=== PATIENT | female | born 1970 | race Caucasian/White ===

== ENCOUNTER 2020-04-19 15:35 | Emergency (ER) | payer OTHER, SELFPAY ==
--- NOTE | ~2020-04-19 | XR_ITS ---
EXAMINATION: XR finger 3rd RT min 2V EXAM DATE: 04/19/2020 15:56 INDICATION: caught in beater on thanksgiving. Pain right 3rd finger. TECHNIQUE: Right 3rd finger frontal, lateral and oblique projections obtained and reviewed. There is no prior study for comparison. FINDINGS: There are no acute right 3rd finger fractures or dislocations identified. There is no subc utaneous gas. Possible laceration overlying the proximal interphalangeal joint. The joint itself is normal in appearance, no erosion or evidence of osteomyelitis. There are no radiopaque foreign teresita s. IMPRESSION: 1. Unremarkable right 3rd finger exam. Reviewed, dictated and finalized at location A. [employer] MARKET[employer] DIRECT[employer]
[2020-04-19 15:44] VITALS: BP 153/117; PULSE 94; RESP 20; TEMP 36.3; O2SAT 100
--- NOTE | 2020-04-19 16:04 | ED.GENADULT ---
HPI - General Adult General Chief complaint: Extremity Injury, Upper Stated complaint: INJURED FINGER Time Seen by Provider: 04/19/20 16:02 Source: patient and RN notes reviewed Mode of arrival: ambulatory Limitations: no limitations History of Present Illness HPI narrative: 49-year-old female presents with complaints of RT middle (third) finger with pain for the past 24 days. Kelly reports getting finger stuck in a mixer on (03/27/20) day and the finger continues to cause pain with movement and holding items (coffee cup). Finger splint, ice, Tylenol, and Ibuprofen (last took Tylenol or ibuprofen over 2 weeks ago) with little to no relief. Denies numbness or tingling. No weakness of finger. Denies fever or chills. Denies immobility. Exacerbation is movement and palpation of finger. Some relieving factor is rest. Dominant hand is RIGHT HAND. Denies break in skin or drainage. LMP 04/05/2020. Remains active. The patient reports she have not been diagnosed with COVID-19. The patient reports she is not waiting for the results of a COVID-19 lab test. The patient reports she do not have chills, weakness, or fatigue. The patient reports she do not have a new or worsening cough or shortness of breath. Denies chest pain. The patient reports she do not have any rhinorrhea, congestion, sore throat, loss of taste, nausea, vomiting, abdominal pain, and diarrhea. Tolerating po intake well. Denies recent traveling. Denies concerns for COVID-19 or exposures been home with limited outdoor exposure except for essential household needs, work, and return home. At this time, patient is not suspected of having COVID-19. Some parts of this dictation were generated by voice recognition software and may contain typographical and/or grammatical inaccuracies. Related Data Home Medications Medication Instructions Recorded Confirmed ergocalciferol (vitamin D2) 1,250 50,000 unit PO WEEKLY 03/07/19 04/19/20 mcg (50,000 unit) capsule fluticasone 250 mcg-salmeterol 50 1 inhalation INHALATION BID 03/07/19 04/19/20 mcg/dose blistr powdr for inhalation Allergies Allergy/AdvReac Type Severity Reaction Status Date / Time No Known Allergies Allergy Unknown Verified 04/19/20 15:42 Review of Systems Review of Systems: Narrative: CONSTITUTIONAL: Denies fever, chills, sweats. EYES: Denies visual changes, redness, discharge. ENT: Denies rhinorrhea, congestion, sore throat, otalgia. CARDIOVASCULAR: Denies chest pain, palpitations, edema. RESPIRATORY: Denies dyspnea, wheezing, cough. GASTROINTESTINAL: Denies abdominal pain, nausea, vomiting, diarrhea. SKIN: Denies rash or itching. MUSCULOSKELETAL: Denies acute back pain or myalgia. Complains of RT middle (third) finger with pain. NEUROLOGIC: Denies numbness or focal weakness. PSYCHIATRIC: Denies anxiety or depression. All systems reviewed & are unremarkable except as noted in HPI and below PMFSH Past Medical History Medical History (Updated 04/21/20 @ 11:52 by Ashlee Cole MD) Allergic rhinitis Asthma Cellulitis of finger of right hand Malignant melanoma of unspecified upper limb, including shoulder Menopausal and female climacteric states (08/23/18) Mixed hyperlipidemia Ocular migraine Rosacea Stress incontinence (female) (male) Synovial cyst of popliteal space [Mejia], unspecified knee UTI (urinary tract infection) Wrist fracture, right Surgical History Surgical History (Updated 04/19/20 @ 16:28 by LILIAN Smaano) History of surgery on wrist Right Family History Family History (Updated 04/19/20 @ 16:28 by LILIAN Samano) Sibling Family history of multiple sclerosis Family history of malignant melanoma Mother Hypertension Family history of atrial fibrillation Father Family history of malignant melanoma Family history of coronary artery disease Family history of atrial fibrillation Hypertension Other Acute myoca
== END 2020-04-19 16:22 | disposition home or self-care (01) ==
PROVIDERS: Emergency Provider Nurse Practitioner Family; PCP Family Medicine
DX: S63.612A Unspecified sprain of right middle finger, initial encounter (principal); W29.0XXA Contact with powered kitchen appliance, initial encounter; Z87.891 Personal history of nicotine dependence; J45.909 Unspecified asthma, uncomplicated; E78.2 Mixed hyperlipidemia; Z85.820 Personal history of malignant melanoma of skin
CPT/HCPCS: 73140; 99213; G0463

== ENCOUNTER 2020-11-15 10:36 | Emergency (ER) | payer OTHER, SELFPAY ==
--- NOTE | ~2020-11-15 | XR_ITS ---
EXAMINATION: XR chest 2V DATE: 11/15/2020 11:58 INDICATION: Thoracic back pain with inspiration TECHNIQUE: PA and lateral views of the chest are obtained. COMPARISON: 05/22/2007 FINDINGS: The lungs are free of acute opacities. There is no pleural effusion or pneumothorax. The ca rdiomediastinal silhouette is normal. There is moderate thoracic spondylosis. IMPRESSION: 1. No acute cardiopulmonary abnormality. Reviewed, dictated and finalized at location A.
[2020-11-15 11:18] VITALS: BP 149/83; PULSE 65; RESP 12; TEMP 36.5; O2SAT 99
--- NOTE | 2020-11-15 11:38 | ED.GENADULT ---
HPI - General Adult General Chief complaint: Back Pain/Injury Stated complaint: back/lung pain Time Seen by Provider: 11/15/20 11:38 Source: patient Mode of arrival: ambulatory Limitations: no limitations History of Present Illness HPI narrative: 50-year-old female patient presents to the [facility] with complaints of right upper back pain that started yesterday. Patient states about a week ago she had an upper respiratory infection and is just now getting over her illness. Patient does have history of asthma but states that she controlled it pretty well but did have a cough at that time. Denies any coughing at this time. Denies any shortness of breath. Denies any trauma to the back that she is aware of. Patient states she has been taking Tylenol and ibuprofen yesterday which really did not seem to help. Denies any heat or ice at this time. Related Data Home Medications Medication Instructions Recorded Confirmed ergocalciferol (vitamin D2) 1,250 50,000 unit PO WEEKLY 03/07/19 11/15/20 mcg (50,000 unit) capsule fluticasone 250 mcg-salmeterol 50 1 inhalation INHALATION BID 03/07/19 11/15/20 mcg/dose blistr powdr for inhalation fluconazole 150 mg PO WEEKLY 11/15/20 11/15/20 Allergies Allergy/AdvReac Type Severity Reaction Status Date / Time No Known Allergies Allergy Unknown Verified 11/15/20 11:08 Review of Systems Review of Systems: Narrative: CONSTITUTIONAL: Denies fever, chills, or sweats. EYES: Denies visual changes, redness, or discharge. ENT: Denies rhinorrhea, congestion, sore throat, or otalgia. CARDIOVASCULAR: Denies chest pain, palpitations, or edema. RESPIRATORY: Denies cough or dyspnea. Pain on inspiration to right upper back since yesterday after getting over URI GASTROINTESTINAL: Denies abdominal pain, nausea, vomiting, or diarrhea. GENITOURINARY: Denies dysuria or hematuria. SKIN: Denies rash or itching. MUSCULOSKELETAL: Denies back pain, joint pain, or myalgia. NEUROLOGIC: Denies headache, numbness, or weakness. PSYCHIATRIC: Denies anxiety or depression. [facility] Past Medical History Medical History Allergic rhinitis Asthma Cellulitis of finger of right hand Malignant melanoma of unspecified upper limb, including shoulder Menopausal and female climacteric states (08/23/18) Mixed hyperlipidemia Ocular migraine Rosacea Stress incontinence (female) (male) Synovial cyst of popliteal space [Mejia], unspecified knee UTI (urinary tract infection) Wrist fracture, right Surgical History Surgical History History of surgery on wrist Right Family History Family History Sibling Family history of multiple sclerosis Family history of malignant melanoma Mother Hypertension Family history of atrial fibrillation Father Family history of malignant melanoma Family history of coronary artery disease Family history of atrial fibrillation Hypertension Other Acute myocardial infarction Social History Social History Smoking status: Former smoker Tobacco type: cigarettes Second hand tobacco smoke exposure: No Smoking end date: 05/02/90 Alcohol intake: former Substance use: never Additional living arrangements comments: Spouse 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 There is no relevant family history pertinent to the presenting complaint. Exam Narrative: Exam Narrative: GENERAL: Well-appearing, well-nourished, and in no acute distress. HEAD: Normocephalic, atraumatic. EYES: PERRLA and EOMI. ENT: Nares clear, no rhinorrhea or epistaxis. Mucous me
== END 2020-11-15 12:34 | disposition home or self-care (01) ==
PROVIDERS: Emergency Provider Nurse Practitioner Family; PCP Family Medicine
DX: S29.012A Strain of muscle and tendon of back wall of thorax, initial encounter (principal); X58.XXXA Exposure to other specified factors, initial encounter; J45.909 Unspecified asthma, uncomplicated; Z85.820 Personal history of malignant melanoma of skin
CPT/HCPCS: 71046; 99213; G0463

== ENCOUNTER 2021-05-29 01:06 | Day surgery (SDC) | payer OTHER, SELFPAY ==
[2021-05-20 14:31] VITALS: BMI 34.4
[2021-05-29 06:42] VITALS: BP 167/88; PULSE 90; RESP 18; TEMP 36.5; O2SAT 98; BMI 35.0
[2021-05-29] MEDS: LACTATED RINGERS 1,000 ML 150 ML IV CONT (07:08)
--- NOTE | 2021-05-29 07:25 | WPDANESEPPF ---
Anes - Initial Pre Proc Eval Procedure: Operation Date: 05/29/21 08:00 Proposed Procedures p Screening Colonoscopy - Gee Beavers MD Date/Time: 05/29/21 07:25 Surgeon: Gee Beavers MD Pre Op Diagnosis: neoplasm screening Patient Data Age: 50 Gender: F Height: 1.68 m Weight: 98.4 kg Last Vital Signs Temp 36.5 C 05/29/21 06:42 Pulse 90 05/29/21 06:42 Resp 18 05/29/21 06:42 BP 167/88 H 05/29/21 06:42 Pulse Ox 98 05/29/21 06:42 Allergies Allergy/AdvReac Type Severity Reaction Status Date / Time No Known Allergies Allergy Unknown Verified 04/01/21 10:01 Home Medications Medication Instructions Recorded Confirmed Type albuterol sulfate 90 mcg/actuation 1 inh INHALATION Q4H 04/01/21 05/29/21 History aerosol inhaler cholecalciferol (vitamin D3) 50 50 mcg PO DAILY 04/01/21 05/29/21 History mcg (2,000 unit) capsule Patient hx anesthesia problems: post op nausea/vomiting Family hx anesthesia problems: none Results Review: All pre-operative results and documents have been reviewed as part of the pre-operative evaluation. [facility] Past Medical History Medical History Allergic rhinitis Asthma Cellulitis of finger of right hand FHx: genetic disease carrier HLA b27 Malignant melanoma of unspecified upper limb, including shoulder Menopausal and female climacteric states (08/23/18) Mixed hyperlipidemia Ocular migraine Rosacea Stress incontinence (female) (male) Synovial cyst of popliteal space [Mejia], unspecified knee UTI (urinary tract infection) Wrist fracture, right Surgical History Surgical History History of surgery on wrist Right Family History Family History Sibling Family history of multiple sclerosis Family history of malignant melanoma Mother Hypertension Family history of atrial fibrillation Father Family history of malignant melanoma Family history of coronary artery disease Family history of atrial fibrillation Hypertension Other Acute myocardial infarction Social History Social History Smoking status: Former smoker Tobacco type: cigarettes Second hand tobacco smoke exposure: No Smoking end date: 05/02/90 Alcohol intake: former Substance use: never Substance use type: does not use Living arrangements: with family Additional living arrangements comments: Spouse Additional occupation/education comments: For the time [employer] Gender identity (if verbalized by the patient): Female Sexual Orientation (if Verbalized by the Patient): Straight or Heterosexual Spiritual care concerns: No Anes - Eval Final PreProcedure Day of Procedure 05/29/21 07:25 Patient weight: obese Heart: regular rate and rhythm Lungs: clear to auscultation Airway: Mallampati scale class II Neurological: alert and oriented Last oral intake: >/= 8 hours ASA classification: II Emergent: no Anesthetic plan: proceed Anesthesia type and monitoring: general GIVS and standard monitoring Results Review: All pre-operative results and documents have been reviewed as part of the pre-operative evaluation. Informed Consent: The patient's anesthetic plan and its attendant risks and benefits were discussed with the patient/family/POA. Questions were solicited and answers provided to the satisfaction of the patient/family/POA.
--- NOTE | 2021-05-29 07:52 | PM.HPGS ---
History of Present Illness History of Present Illness Consent: Risks, benefits, and alternatives have been discussed and questions answered. Patient agrees to proceed with procedure. Chief complaint: neoplasm screening Narrative: Lena Melchor is a 50 year old female here for first screening colonoscopy Review of Systems Constitutional: Constitutional: Denies headache(s) and Denies weakness Eyes: Eyes: Denies blurry vision ENT: Reports Normal hearing present, Denies headache(s) and Denies neck pain Cardiovascular: Cardiovascular: Denies chest pain and Denies dyspnea Respiratory: Respiratory: Denies dyspnea Gastrointestinal: Gastrointestinal: Reports no additional gastrointestinal complaints Genitourinary: Genitourinary: Denies dysuria Musculoskeletal: Musculoskeletal: Denies neck pain Integumentary/Breasts: Skin/Breast: Denies dry skin Neurologic: Reports Normal hearing present, Denies headache(s) and Denies weakness Psychiatric: Psychiatric: Denies anxiety Endocrine: Endocrine: Denies change in body appearance Hematologic/Lymphatic: Hematologic/Lymphatic: Denies easy bleeding Allergic/Immunologic: Allergic/Immunologic: Denies urticaria PMFSH Past Medical History Medical History (Updated 05/29/21 @ 07:53 by Gee Beavers MD) Allergic rhinitis Asthma Cellulitis of finger of right hand Colon cancer screening FHx: genetic disease carrier HLA b27 Malignant melanoma of unspecified upper limb, including shoulder Menopausal and female climacteric states (08/23/18) Mixed hyperlipidemia Ocular migraine Rosacea Stress incontinence (female) (male) Synovial cyst of popliteal space [Mejia], unspecified knee UTI (urinary tract infection) Wrist fracture, right Surgical History Surgical History History of surgery on wrist Right Family History Family History Sibling Family history of multiple sclerosis Family history of malignant melanoma Mother Hypertension Family history of atrial fibrillation Father Family history of malignant melanoma Family history of coronary artery disease Family history of atrial fibrillation Hypertension Other Acute myocardial infarction Social History Social History Smoking status: Former smoker Tobacco type: cigarettes Second hand tobacco smoke exposure: No Smoking end date: 05/02/90 Alcohol intake: former Substance use: never Substance use type: does not use Living arrangements: with family Additional living arrangements comments: Spouse Additional occupation/education comments: For the time [employer] Gender identity (if verbalized by the patient): Female Sexual Orientation (if Verbalized by the Patient): Straight or Heterosexual Spiritual care concerns: No Meds Home Medications and Allergies Home Medications Medication Instructions Recorded Confirmed Type albuterol sulfate 90 mcg/actuation 1 inh INHALATION Q4H 04/01/21 05/29/21 History aerosol inhaler cholecalciferol (vitamin D3) 50 50 mcg PO DAILY 04/01/21 05/29/21 History mcg (2,000 unit) capsule Allergies Allergy/AdvReac Type Severity Reaction Status Date / Time No Known Allergies Allergy Unknown Verified 04/01/21 10:01 Vital Signs Vital Signs - 24 hr 05/29/21 06:42 Temperature 97.7 F Pulse Rate 90 Respiratory Rate 18 Blood Pressure 167/88 H Pulse Oximetry 98 Exam Const: General: comfortable and no acute distress HENMT: General nose exam: Normal nares present Eyes: General: appearance normal, both eyes and all related structures Neck: Neck: no JVD Resp: Auscultation: clear to auscultation bilaterally Cardio: Rate: regular rate Rhythm: regular rhythm GI: Inspection: non-distended GI Palp: Yes Soft to palpation Skin: Genera
--- NOTE | 2021-05-29 08:06 | SUR.OPER ---
RN updated family member
[2021-05-29 08:15] VITALS: BP 129/85; PULSE 64; RESP 18; O2SAT 100
[2021-05-29 08:25] VITALS: BP 121/98; PULSE 64; RESP 20; O2SAT 100
[2021-05-29 08:35] VITALS: BP 130/91; PULSE 65; RESP 21; O2SAT 99
== END 2021-05-29 08:43 | disposition home or self-care (01) ==
PROVIDERS: PCP Family Medicine; Visit Provider Internal Medicine Gastroenterology
PROC: 0DJD8ZZ Inspection of Lower Intestinal Tract, Via Natural or Artificial Opening Endoscopic (ICD-10-PCS; CPT 45378; principal; 2021-05-29 08:00)
DX: Z12.11 Encounter for screening for malignant neoplasm of colon (principal); K64.8 Other hemorrhoids; J45.909 Unspecified asthma, uncomplicated; E78.2 Mixed hyperlipidemia; N39.3 Stress incontinence (female) (male); Z14.8 Genetic carrier of other disease; Z79.51 Long term (current) use of inhaled steroids; Z87.891 Personal history of nicotine dependence; E66.9 Obesity, unspecified; Z68.35 Body mass index [BMI] 35.0-35.9, adult
CPT/HCPCS: 45378; J2704; J7120

== ENCOUNTER 2024-03-16 11:59 | Outpatient (CLI) | payer OTHER, SELFPAY ==
--- NOTE | ~2024-03-16 | MM_ITS ---
EXAMINATION: MM screening jamey BI w yang HISTORY: Screening mammogram TECHNIQUE: Craniocaudal and mediolateral oblique 3-D tomosynthesis images were obtained and synthetic 2-D images were generated. CAD analysis was submitted and interpreted. COMPARISON: No prior mammogram is available for comparison at this institution. BREAST PARENCHYMAL COMPOSITION:Not Dense. There are scattered areas of fibroglandular density. FINDINGS: No suspicious mass, calcification, or architectural distortion are identified in either vlad ast to suggest malignancy. There has been no suspicious interval change. IMPRESSION: No mammographic evidence of malignancy. Recommend routine screening mammography in one year. BI-RADS Category 1: Negative Reviewed, dictated and finalized at location . NESS ASSISTANT
== END 2024-03-16 12:00 | disposition home or self-care (01) ==
LOC: MICIMG 11:59
PROVIDERS: PCP Family Medicine; Visit Provider Family Medicine
DX: Z12.31 Encounter for screening mammogram for malignant neoplasm of breast (principal)
CPT/HCPCS: 77063; 77067